=== PATIENT | male | born 1945 | race Caucasian/White ===

== ENCOUNTER → 2016-11-17 | Outpatient (REF) | payer MEDICARE, OTHER ==
[~2016-11-17] MED LIST: ASPI1TAB PO; ASTE0.15; CLOTLOT TOP; FLUO5CR TOP; FLUT1SPR2; LOSA50TA21 PO; SIMV40TA2 PO; VIAG100T PO
[2016-11-17 15:42] LABS: BLOOD UREA NITROGEN 13 MG/DL (7-18); GLOMERULAR FILTRATION RATE > 60.0 (>42)
== END ==
LOC: M LABNEURO 13:59
PROVIDERS: ATTEND Psychiatry & Neurology Neurology
DX: I10 Essential (primary) hypertension (principal)

== ENCOUNTER → 2018-05-04 | Outpatient (CLI) | payer MEDICARE, OTHER | LOC: M RAD 09:15 | DX: Z12.2 Encounter for screening for malignant neoplasm of respiratory organs (principal); Z87.891 Personal history of nicotine dependence | CPT/HCPCS: G0297 ==

== ENCOUNTER 2019-05-04 08:21 | Day surgery (SDC) | payer MEDICARE, OTHER ==
[~2019-05-04] VITALS: Ht 182.9 cm; Wt 77.6 kg
[~2019-05-04 08:21] MED LIST changes: -ASPI1TAB PO; +ASPI81TA26 PO; +CLOP75TA2 PO; +FLUO0.05 TOP; -FLUO5CR TOP; +FLUTISP; -LOSA50TA21 PO; +LOSA50TA5 PO; +NS 1,000 ML IV ONE; +PREVAGEN PO; -SIMV40TA2 PO; +SIMV40TA20 PO
[2019-05-04] MEDS ORDERED: LIDOCAINE 2% INJ 100 MG/5 ML SDV (FOR ANES.) As Ordered ONE (08:57)
[2019-05-04] MEDS ORDERED: PROPOFOL 200 MG/20 ML VIAL As Ordered ONE ×2 (08:57→09:05)
--- NOTE | 2019-05-04 09:33 | ROOR ---
Patient Name: Hu Ramirez Procedure Date: 05/04/2019 8:58 AM Date of : 1945 Age: 74 Room: [facility] Gender: Male Note Status: Finalized Procedure: Colonoscopy Indications: High risk colon cancer surveillance: Personal history of colonic polyps Providers: DO Tanya Reese MD: KIRA CHAVIRA Requesting Provider: Medicines: Propofol per Anesthesia Complications: No immediate complications. Procedure: Pre-Anesthesia Assessment: - Prior to the procedure, a History and Physical was performed, and patient medications and allergies were reviewed. The patient is competent. The risks and benefits of the procedure and the sedation options and risks were discussed with the patient. All questions were answered and informed consent was obtained. Patient identification and proposed procedure were verified by the physician, the nurse, the anesthesiologist and the electronics technician apprentice in the endoscopy suite. Mental Status Examination: alert and oriented. Airway Examination: normal oropharyngeal airway and neck mobility. Respiratory Examination: clear to auscultation. CV Examination: normal. Prophylactic Antibiotics: The patient does not require prophylactic antibiotics. Prior Anticoagulants: The patient has taken Plavix (clopidogrel), last dose was 3 days prior to procedure. ASA Grade Assessment: III - A patient with severe systemic disease. After reviewing the risks and benefits, the patient was deemed in satisfactory condition to undergo the procedure. The anesthesia plan was to use moderate sedation / analgesia (conscious sedation). Immediately prior to administration of medications, the patient was re-assessed for adequacy to receive sedatives. The heart rate, respiratory rate, oxygen saturations, blood pressure, adequacy of pulmonary ventilation, and response to care were monitored throughout the procedure. The physical status of the patient was re-assessed after the procedure. The Colonoscope was introduced through the anus and advanced to the cecum, identified by appendiceal orifice and ileocecal valve. The colonoscopy was performed without difficulty. The patient tolerated the procedure well. Findings: Multiple small and large-mouthed diverticula were found in the sigmoid colon. Non-bleeding internal hemorrhoids were found during retroflexion. The hemorrhoids were Grade II (internal hemorrhoids that prolapse but reduce spontaneously). Seven hyperplastic polyps were found in the rectum, descending colon, transverse colon, ascending colon and cecum. The polyps were less than 5 mm in size. These polyps were removed with a jumbo cold forceps. Resection and retrieval were complete. Estimated blood loss was minimal. The exam was otherwise without abnormality on direct and retroflexion views. Impression: - Diverticulosis in the sigmoid colon. - Non-bleeding internal hemorrhoids. - Seven less than 5 mm polyps in the rectum, in the descending colon, in the transverse colon, in the ascending colon and in the cecum, removed with a jumbo cold forceps. Resected and retrieved. - The examination was otherwise normal on direct and retroflexion views. Recommendation: - Patient has a contact number available for emergencies. The signs and symptoms of potential delayed complications were discussed with the patient. Return to normal activities tomorrow. Written discharge instructions were provided to the patient. - Repeat colonoscopy in 3 - 5 years for surveillance based on pathology results. - Return to my office as previously scheduled. Dmitri Bonner DO 05/04/2019 9:32:46 AM Electronically signed by Dmitri Bonner DO Number of Addenda: 0 Note Initiated On: 05/04/2019 8:58 AM Estimated Blood Loss: Estimated blood loss was minimal.
[2019-05-04 09:45] VITALS: BP 105/63
== END 2019-05-04 10:08 | disposition home or self-care (01) ==
LOC: M OPP 08:21
PROVIDERS: ATTEND Surgery
DX: Z12.11 Encounter for screening for malignant neoplasm of colon (principal); Z86.010 Personal history of colon polyps; K64.1 Second degree hemorrhoids; K62.1 Rectal polyp; D12.4 Benign neoplasm of descending colon; D12.3 Benign neoplasm of transverse colon; D12.2 Benign neoplasm of ascending colon; D12.0 Benign neoplasm of cecum; K57.30 Diverticulosis of large intestine without perforation or abscess without bleeding; Z79.899 Other long term (current) drug therapy; Z86.79 Personal history of other diseases of the circulatory system; F17.299 Nicotine dependence, other tobacco product, with unspecified nicotine-induced disorders

== ENCOUNTER → 2020-07-06 | Outpatient (REF) | payer MEDICARE, OTHER ==
[~2020-07-06] MED LIST changes: -NS 1,000 ML IV ONE
== END ==
LOC: M LAB REF 09:13
PROVIDERS: ATTEND Dermatology
DX: L90.5 Scar conditions and fibrosis of skin (principal)

== ENCOUNTER → 2021-01-31 | Outpatient (CLI) | payer MEDICARE, OTHER ==
--- NOTE | 2021-02-07 09:29 | REP ---
INDICATION: RAPHAEL HIP PAIN W/ NEOPLASM UNCERTAIN BEHAVIOR injury September 2019 in December 2019, pain COMPARISON: Radiographs 01/21/2021. TECHNIQUE: Coronal T1, STIR through the pelvis, axial, coronal, sagittal T2 fat sat right hip. FINDINGS: There are findings characteristic of avascular necrosis of the right femoral head. There is no flattening of the femoral head. There is diffuse marrow edema throughout the femoral head neck. There is a benign subcortical cyst in the anterior femoral head measuring 1.9 cm. There tears of the anterior and posterior labrum. There is an associated subcentimeter paralabral cyst at the superior posterior margin of the joint. There is mild to moderate chondromalacia at the hip joint. There is mild subcortical marrow edema in the superior acetabulum anteriorly. Surrounding soft tissue structures are otherwise unremarkable. There is a small joint effusion. 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 Benign subcortical cyst in the anterior femoral head measures 1.9 cm. There is diffuse marrow edema throughout the femoral head neck. There are tears of the anterior and posterior labrum. There are [id number] degenerative changes at the hip joint itself with mild subchondral marrow edema in the acetabulum. <Electronically signed by Dmitri Mcknight > 02/07/21 1731
--- NOTE | 2021-02-07 09:53 | REP ---
INDICATION: HIP PAIN injury September 2019 in December 2019, pain COMPARISON: Radiographs 01/21/2021. TECHNIQUE: Coronal T1, STIR through the pelvis, axial, coronal, sagittal T2 fat sat left hip. FINDINGS: There are findings in the superior aspect of the femoral head which are characteristic for early avascular necrosis. There is no femoral head flattening. There is abnormal signal involving the left iliac bone and ischium. This is heterogeneously hypointense on T1 and hyperintense on T2. The craniocaudal length of the lesion is approximately 8.6 cm. It extends to all of the cortical surfaces, and extends beyond the medial cortical margin of the inferior left iliac bone, the extraosseous component is lobulated in appearance, measuring 2.7 x 2.9 x 1.0 cm. I also suspect a small area of cortical disruption centrally at the acetabulum. The bone lesion does not demonstrate a sharp zone of transition, with somewhat ill-defined margins. The findings are worrisome for sarcoma. The posterior labrum is torn. The anterior labrum appears torn and truncated. There is a small joint effusion. The other surrounding soft tissue structures appear unremarkable. IMPRESSION: Early avascular necrosis left femoral head. There is a worrisome, large bone lesion involving the left iliac bone and ischium as discussed in detail above. This could represent sarcoma. Recommend CT-guided biopsy. There is a tear of the posterior labrum. The anterior labrum appears torn and truncated. <Electronically signed by Dmitri Mcknight > 02/07/21 0937
== END ==
LOC: M PLAIMG 13:49
PROVIDERS: ATTEND Physician Assistant
DX: M87.051 Idiopathic aseptic necrosis of right femur (principal); M16.11 Unilateral primary osteoarthritis, right hip; S73.191A Other sprain of right hip, initial encounter; X58.XXXA Exposure to other specified factors, initial encounter; Y92.9 Unspecified place or not applicable; Y93.9 Activity, unspecified; Y99.9 Unspecified external cause status; M25.452 Effusion, left hip; M87.052 Idiopathic aseptic necrosis of left femur; S73.192A Other sprain of left hip, initial encounter; M85.852 Other specified disorders of bone density and structure, left thigh

== ENCOUNTER → 2021-02-27 | Outpatient (CLI) | payer MEDICARE, OTHER | LOC: M IRPRO 11:51 | PROVIDERS: ATTEND Physician Assistant | DX: D48.0 Neoplasm of uncertain behavior of bone and articular cartilage (principal); Z53.8 Procedure and treatment not carried out for other reasons ==

== ENCOUNTER → 2021-03-04 | Outpatient (CLI) | payer MEDICARE, OTHER ==
[~2021-03-04] MED LIST changes: +LIDOCAINE 1% MDV 20ML VIAL As Ordered ONE
[2021-03-04 16:58] VITALS: BP 148/86
--- NOTE | 2021-03-04 17:00 | REP ---
INDICATION: LT ILIAC BONE / ISCHIUM BONE LESION. COMPARISON: None. TECHNIQUE: The procedure was performed under the direct supervision of Dr. Cosme. The patient has a history of a large bone lesion involving the left iliac bone and ischium seen on a previous MRI dated 01/31/2021. The risks and benefits of the procedure were explained to the patient and informed consent was obtained. The left iliac bone lesion was localized using CT guidance. The skin was prepped and draped in a sterile fashion. 10 mL of 1% lidocaine was used as a local anesthetic. Using CT guidance 3 core biopsy samples were obtained using an 11 gauge bone biopsy system. Estimated blood loss: Less than 1 mL The patient tolerated the procedure well and there were no immediate complications. After the appropriate amount to monitor convalescence the patient was discharged from the department. FINDINGS: None IMPRESSION: CT-guided left iliac bone biopsy. <Electronically signed by Gregory Brandt > 03/04/21 [id number] <Electronically signed by Tavo Cosme > 03/04/21 1826
== END ==
LOC: M IRPRO 14:27
PROVIDERS: ATTEND Physician Assistant
DX: R89.7 Abnormal histological findings in specimens from other organs, systems and tissues (principal)

== ENCOUNTER → 2021-03-21 | Outpatient (CLI) | payer MEDICARE, OTHER ==
[~2021-03-21] MED LIST changes: +ISOVUE-370 76% 100ML VIAL As Ordered ONE; -LIDOCAINE 1% MDV 20ML VIAL As Ordered ONE
--- NOTE | 2021-03-21 15:18 | REP ---
INDICATION: OSTEOSARCOMA COMPARISON: 05/04/2018 the only prior. A low-dose screening CT of the lungs TECHNIQUE: Standard helical technique after the intravenous administration of 100 cc Isovue 370. FINDINGS: There is no mediastinal or hilar adenopathy. There are no pleural or pericardial effusions. The imaged upper abdomen shows multiple hepatic cysts. The imaged osseous structures are within normal limits. Evaluation of the lung galicia shows calcific right apical pleuroparenchymal scarring status quo. There are no new abnormal nodules, masses, or opacities. IMPRESSION: Stable CT examination of the chest. No significant change from the prior exam when the technical differences between the examinations are taken into consideration. <Electronically signed by Aaron Chowdhury > 03/21/21 0872
== END ==
LOC: M RAD 12:58
PROVIDERS: ATTEND Specialist
DX: C41.9 Malignant neoplasm of bone and articular cartilage, unspecified (principal); K76.89 Other specified diseases of liver; J98.4 Other disorders of lung
CPT/HCPCS: 71260; Q9967

== ENCOUNTER → 2021-04-22 | Outpatient (REF) | payer MEDICARE, OTHER ==
[~2021-04-22] MED LIST changes: -ISOVUE-370 76% 100ML VIAL As Ordered ONE
== END ==
LOC: M LAB REF 17:10
PROVIDERS: ATTEND Physician Assistant
DX: Z01.818 Encounter for other preprocedural examination (principal)

== ENCOUNTER → 2021-11-27 | Outpatient (CLI) | payer MEDICARE, OTHER ==
[~2021-11-27] MED LIST changes: +COFF1CAP3 PO; +HYDR12.55; +LOSA50TA28
== END ==
LOC: M LABSMTC 09:48
PROVIDERS: ATTEND Anesthesiology
DX: Z11.52 Encounter for screening for COVID-19 (principal)

== ENCOUNTER 2021-12-02 09:18 | Day surgery (SDC) | payer MEDICARE, OTHER ==
[~2021-12-02] VITALS: Ht 177.8 cm; Wt 63.2 kg
[~2021-12-02 09:18] MED LIST changes: +ceFAZolin SOD 2 GM in IV 1 EA IV ONE
[2021-12-02] MEDS ORDERED: LR 1,000 ML IV SCH ×2 (09:30→12:50)
[2021-12-02] MEDS ORDERED: BUPIVACAINE/EPIN 0.25% 30 ML VIAL As Ordered ONE (11:21)
[2021-12-02] MEDS ORDERED: fentaNYL 250 MCG/5 ML INJECTION As Ordered ONE (11:42)
[2021-12-02] MEDS ORDERED: ACETAMINOPHEN 1000MG 100ML IV BTL (OFIRMEV) (J0131 PER 10MG) As Ordered ONE (12:05)
[2021-12-02] MEDS ORDERED: ROCURONIUM BROMIDE 50 MG/5 ML VIAL As Ordered ONE (12:09)
[2021-12-02] MEDS ORDERED: dexameTHASONE 4 MG/ML 1ML VIAL (J1100 PER 1MG) As Ordered ONE (12:09)
[2021-12-02] MEDS ORDERED: SUGAMMADEX SODIUM 500 MG/5 ML VIAL (BRIDION) As Ordered ONE (12:09)
[2021-12-02] MEDS ORDERED: ONDANSETRON 4MG/2ML VIAL As Ordered ONE (12:09)
[2021-12-02] MEDS ORDERED: propofoL 200 MG/20 ML VIAL As Ordered ONE (12:09)
[2021-12-02] MEDS ORDERED: LIDOCAINE 2% INJ 100 MG/5 ML SYRINGE As Ordered ONE (12:10)
[2021-12-02] MEDS ORDERED: LABETALOL 100MG/20ML VIAL As Ordered ONE (12:41)
[2021-12-02] MEDS ORDERED: METOCLOPRAMIDE INJ 10MG/2ML VIAL (J2765 PER 1) IV PRN (12:50)
[2021-12-02] MEDS ORDERED: ONDANSETRON 4MG/2ML VIAL IV PRN (12:50)
[2021-12-02] MEDS ORDERED: HYDROMORPHONE HCL 0.5 MG/ 0.5 ML SYRINGE (J1170 PER 1) IV PRN (12:50)
[2021-12-02] MEDS ORDERED: fentaNYL 100 MCG/2 ML INJECTION IV PRN (12:50)
[2021-12-02] MEDS ORDERED: hydrALAZINE 20MG/ML 1ML VIAL (J0360 PER 20MG) IV PRN (13:10)
[2021-12-02] MEDS ORDERED: NORCO, ANEXSIA 5/325MG TABLET (HYDROcodone/ACETAMINOPHEN) PO PRN (13:25)
[2021-12-02 14:40] VITALS: BP 154/71
== END 2021-12-02 14:45 | disposition home or self-care (01) ==
LOC: M SDC 09:18
PROVIDERS: ATTEND Surgery
DX: K40.90 Unilateral inguinal hernia, without obstruction or gangrene, not specified as recurrent (principal); I10 Essential (primary) hypertension; E78.5 Hyperlipidemia, unspecified; Z79.02 Long term (current) use of antithrombotics/antiplatelets; Z86.73 Personal history of transient ischemic attack (TIA), and cerebral infarction without residual deficits; F17.210 Nicotine dependence, cigarettes, uncomplicated; Z79.899 Other long term (current) drug therapy
CPT/HCPCS: 49650; C1781; J0131; J0690; J1100; J2405; J3010; S2900

== ENCOUNTER → 2025-01-03 | Outpatient (CLI) | payer MEDICARE, OTHER ==
[~2025-01-03] MED LIST changes: -CLOTLOT TOP; +CLOTLOT2 TOP; -ceFAZolin SOD 2 GM in IV 1 EA IV ONE
== END ==
LOC: M PLAIMG 09:01
PROVIDERS: ATTEND Registered Nurse
DX: R06.02 Shortness of breath (principal)